=== PATIENT | female | born 1950 | race Caucasian/White ===

== ENCOUNTER 2016-11-24 05:19 | Day surgery (SDC) | payer OTHER ==
[~2016-11-24] VITALS: Ht 154.9 cm; Wt 81.6 kg
[~2016-11-24 05:19] MED LIST: B-COMPLEX-VITA1 EACH PO; BIOTIN1000 MCG PO; CALCIUM-MAGNES1 EA10 PO; CO Q-10200 MG PO; OMEGA 3-6-9 11200 MG PO; POTASSIUM-9999 MG PO; RED YEAST RICE600 M1 PO; SELENOMAX200 MCG PO; VITAMIN B-12250 MCG PO; VITAMIN C1000 MG PO; VITAMIN D35000 UNIT PO; VITAMIN E1000 UNI1 PO; ZESTRIL10 MG PO
[2016-11-24 06:06] VITALS: BP 148/79
[2016-11-24 09:10] VITALS: BP 150/90
== END 2016-11-24 09:45 | disposition home or self-care (01) ==
LOC: SDC 05:19
DX: H43.392 Other vitreous opacities, left eye (principal); H33.312 Horseshoe tear of retina without detachment, left eye; H35.81 Retinal edema; I10 Essential (primary) hypertension
CPT/HCPCS: J0690; J0713; J2250; J3010; J3300